=== PATIENT | female | born 1990 | race Caucasian/White ===

== ENCOUNTER 2017-07-26 05:38 | Emergency (ER) | payer BC ==
[~2017-07-26] VITALS: Ht 160 cm; Wt 68.9 kg
[~2017-07-26 05:38] MED LIST: CIPR-255 PO
[2017-07-26 05:43] VITALS: TEMP 36.7; Ht 160 cm; Wt 68.9 kg
[2017-07-26] MEDS ORDERED: SERT50TA PO (06:04)
[2017-07-26] MEDS ORDERED: AMOX875T PO (06:13)
[2017-07-26] MEDS ORDERED: AMOXICILLIN/CLAVULANATE TAB 875 MG TAB PO ONE (06:15)
--- NOTE | 2017-07-26 06:15 | EMERGENCY ROOM VISIT NOTE ---
History First contact with patient: 05:47 Chief Complaint: SINUS CONGESTION/PRESSURE Stated Complaint: SINUS PRESSURE,HEADACHE,EAR AHCES,NAUSEA,FEVER 3DY Nursing Triage Summary: c/o head congestion and sinus pressure since monday seen by her dr. lorenzo has been taking otc meds without relief. History of Present Illness The patient is a 26 year old female who presents to the Emergency Room with complaints of sinus congestion 3 days. The patient states that she has had fevers and facial pressure for the past 3 days. She also reports a sore throat and pressure in her ears. She states that she has been ill on and off since December. She has been seeing her primary care provider, Dr. Crain, who recently ordered labs and told her that her IgG level was low. She has also seen ENT due to some issues with throat swelling. She had a normal scope. She was treated with doxycycline for pneumonia last month, but has not been on any other antibiotics recently. She has been taking Xanax and Advil without relief of her symptoms. She rates her discomfort a 7/10. She denies any neck pain/ stiffness, nausea/vomiting, abdominal pain or cough. Review of Systems A complete 10 point review of systems was reviewed with the patient with pertinent positives and negatives as per history of present illness. All else were negative. Social History Smoking Status: Never Smoker Alcohol Use: occasionally Drug Use: none Marital Status: single Housing Status: lives with roommate Occupation Status: employed Current/Historical Medications Scheduled Amoxicillin & Pot Clavulanate (Augmentin 875-125 mg), 1 TAB PO BID Sertraline (Zoloft), 50 MG PO DAILY Physical Exam Vital Signs Date Time Temp Pulse Resp B/P (MAP) Pulse Ox O2 Delivery O2 Flow Rate FiO2 07/26/17 06:20 72 16 111/74 98 07/26/17 05:43 36.7 101 20 126/80 98 Room Air Physical Exam VITALS: Vitals are noted on the nurse's note and reviewed by myself. Vital signs stable. GENERAL: This is a 26-year-old female, in no acute distress, nondiaphoretic, well-developed well-nourished. SKIN: The skin was without rashes. EARS: External auditory canals clear, tympanic membranes pearly reyes without erythema or effusion bilaterally. EYES: Pupils equal round and reactive to light and accommodation. Conjunctivae without injection, sclerae without icterus. NOSE: Patent, turbinates are mildly inflamed bilaterally. There is mild maxillary sinus tenderness bilaterally. MOUTH: Mucous membranes moist. Tonsils are not enlarged. Pharynx slightly erythematous without exudate. NECK: Supple without nuchal rigidity. Left anterior cervical lymphadenopathy. HEART: Regular rate and rhythm without murmurs gallops or rubs. LUNGS: Clear to auscultation bilaterally without wheezes, rales or rhonchi. NEURO: Patient was alert and oriented to person place and time. Medical Decision & Procedures Medications Administered Medications (Trade) Dose Ordered Sig/Zoe Route Start Time Stop Time Status Last Admin Dose Admin Amoxicillin/ Clavulanate Potassium (Augmentin Tab) 875 mg ONE ONCE PO 07/26/17 06:15 07/26/17 06:16 DC 07/26/17 06:05 875 MG Medical Decision Differential diagnosis includes sinusitis, otitis media, pharyngitis, meningitis , encephalitis, viral illness, among others. The patient is a 26-year-old female who presents today complaining of sinus tenderness. The patient has been following closely with her primary care provider for recurrent illnesses over the past several months. She will be placed on Augmentin. I did suggest steroids, but she states she does not typically tolerate these well. She was encouraged to follow-up closely with her primary care provider. Conservative measures were discussed. She was encouraged to return here for any neck pain/stiffness or other concerning symptoms. Based on the patient's presentation and work up, I feel the patient is stable for outpatient treatment. The patient was educated to return to the emergency department for any worsening of their current condition or new/concerning symptoms. She will follow up with her PCP. Medication Reconcilliation Current Medication List: was personally reviewed by me Blood Pressure Screening Patient's blood pressure: Normal blood pressure Impression Primary Impression: Acute sinusitis Departure Information Dispostion Home / Self-Care Condition GOOD Prescriptions Amoxicillin & Pot Clavulanate (Augmentin 875-125 mg) 1 Tab Tab 1 TAB PO BID for 10 Days, #20 TAB Prov: Nohelia Lay PA-C 07/26/17 Referrals Ty Crain MD (PCP) Patient Instructions [facility] Additional Instructions You were prescribed Augmentin to be taken twice daily for 10 days. This is an antibiotic. All antibiotics have the potential to cause diarrhea. Stop this medication and contact a medical provider if you were to develop any significant adverse side effects including: wheezing, shortness of breath, passing out, vomiting, or a diffuse rash. Always take antibiotics as directed and COMPLETE the ENTIRE course regardless of the improvement of your symptoms. For pain/fever control, you can use the following [id number] medicines ( if >12 yo): - Regular strength (325mg/tab) Tylenol (acetaminophen) 2 tabs every 4-6 hours as needed. Do not exceed 12 tablets in a 24 hour period. Avoid taking more than 4 grams (4000 mg) of Tylenol per day. This includes any other sources of acetaminophen you may take on a regular basis. - Regular strength (200 mg/tab) Advil (ibuprofen) 1-2 tabs every 4-6 hours as needed. Do not exceed a dose of 3200 mg per day. Follow-up with your primary care provider this week. Return to the emergency with any neck pain/stiffness, severe headache or any other new/concerning symptoms. Problem Qualifiers Primary Impression: Acute sinusitis
[2017-07-26 06:20] VITALS: BP 111/74; PULSE 72; O2SAT 98
== END 2017-07-26 06:21 | disposition home or self-care (01) ==
LOC: C.EDB 05:39 → C.EDA 06:21
DX: J01.90 Acute sinusitis, unspecified (principal); Z87.01 Personal history of pneumonia (recurrent); Z79.899 Other long term (current) drug therapy

== ENCOUNTER 2022-03-03 21:39 | Inpatient (IN) ==
[2022-03-03] MEDS ORDERED: OXYTOCIN 30 UNITS/500 ML BAG IV PRN (21:50)
--- NOTE | 2022-03-03 21:54 | Labor Progress Brief Note ---
Date of Service March 03, 2022 Subjective Patient returns with contractions more painful and Q3min, no LOF, no VB, good FM. Assessment & Plan (1) Normal labor and delivery: Plan: Patient admitted as now in labor. Wants epidural; can provide as labs/bolus completed. Expt mgmt of labor for now. Physical Exam Genitourinary: /-2 FHT Cat 1 toco just being applied but clinically Q2-3 painful. Coding Level of Care Code None Diagnoses Normal labor and delivery O80
[2022-03-03] MEDS: LACTATED RINGER'S 1,000 ML IV PRN (21:56)
[2022-03-03] MEDS ORDERED: fentaNYL citrate 100 MCG/2 ML VIAL ONE (22:09)
[2022-03-03] MEDS ORDERED: ePHEDrine sulfate 50 MG/ML AMP ONE (22:09)
[2022-03-03] MEDS ORDERED: fentaNYL 2MCG/ML ROPIVACAINE 1.25MG/ML 100 ML BAG EPI ONE (22:09)
[2022-03-03] MEDS ORDERED: BUPIVACAINE 0.25% 30 ML VIAL ONE (22:09)
[2022-03-03] MEDS ORDERED: SODIUM CHLORIDE 0.9% INJ 10 ML VIAL ONE (22:09)
[2022-03-03 22:23] LABS: Hematocrit (blood only) 36.3 % (37-47); Hemoglobin 12.7 g/dL (12.0-16.0); Mean Corpuscular Hemoglobin 31.2 pg (25-34); Mean Corpuscular Volume 89.2 fL (80-100); Mean Platelet Volume 10.5 fL (7.4-10.4); Platelet Count 194 K/uL (130-400); RDW Coefficient of Variation 12.6 % (11.5-14.5); RDW Standard Deviation 40.2 fL (36.4-46.3); Red Blood Count 4.07 M/uL (4.2-5.4)
--- NOTE | 2022-03-03 22:30 | Anesthesiology Consultation ---
Date of Service March 03, 2022 Assessment & Plan (1) Encounter for pre-operative examination: Chart Review Chart Review: Patient NOT seen in Pre Admission Testing and Acceptable Risk for Labor Epidural Consults Requested none History Height/Weight Height: 5 ft 3 in Weight: 80.739 kg Allergies Allergy/AdvReac Type Severity Reaction Status Date / Time No Known Allergies Allergy Verified 02/28/22 16:21 Medications Home Medications Medication Instructions Recorded Confirmed Last Taken prenat.vits,lashawn,psz-ufux-urbsx 1 tab PO DAILY 04/27/21 03/03/22 03/03/22 Active Medications Generic Name Dose Route Start Last Admin Trade Name Freq PRN Reason Stop Dose Admin Lactated Ringer's 1,000 mls @ 125 mls/hr 03/03/22 21:50 03/03/22 21:56 Lr IV 03/05/22 21:49 999 mls/hr .Q8H PRN Administration L&D Protocol Protocol NPO Date Last Intake of Fluids: 03/03/22 Time Last Intake of Fluids: 22:28 Date Last Intake of Solids: 03/03/22 Time Last Intake of Solids: 22:28 Past Medical History Medical History Depression in high school. No treatment since History of chicken pox Hyperparathyroidism 5 years ago; no treatment or symptoms Past Family History Family History Mother Dyslipidemia Father Heart disease Thyroid disease Other Depression Hypertension Denies family history of Ovarian cancer Prostate cancer Breast cancer Colorectal cancer Past Surgical History Surgical History H/O foot surgery right foot surgery 2009 History of dental surgery wisdom teeth removed 2006 History of tonsillectomy age 4 Social History Smoking Status: Never smoker Hx Alcohol Use: No Hx Substance Use: No Physical Exam Vital Signs Last Vital Signs Temp 36.6 C 03/03/22 21:53 Pulse 70 03/03/22 22:24 Resp 18 03/03/22 21:53 BP 144/79 H 03/03/22 21:53 Pulse Ox 98 03/03/22 22:24 Testing Laboratory Results 03/03/22 22:12
[2022-03-03] MEDS ORDERED: NALOXONE HCL 0.4 MG/1 ML VIAL/CARP IV PRN (23:06)
[2022-03-03] MEDS ORDERED: ONDANSETRON INJ 2 MG/ML 2 ML VIAL IV PRN (23:06)
[2022-03-03] MEDS ORDERED: ePHEDrine sulfate 50 MG/ML AMP IV PRN (23:06)
[2022-03-03] MEDS ORDERED: NALOXONE HCL 1 MG in SODIUM CHLORIDE 0.9% 1000ML 1,000 ML IV PRN (23:06)
[2022-03-03] MEDS ORDERED: fentaNYL 2MCG/ML ROPIVACAINE 1.25MG/ML 100 ML BAG EPI PRN (23:06)
[2022-03-03] MEDS ORDERED: diphenhydrAMINE 50 MG/ML VIAL IV PRN (23:06)
[2022-03-03] MEDS ORDERED: NALBUPHINE HCL INJ 10 MG/ML AMP IV PRN (23:06)
[2022-03-04] MEDS: LACTATED RINGER'S 1,000 ML IV PRN (00:45)
[2022-03-04] MEDS ORDERED: EPINEPHrine ADULT AUTO-INJECT 0.3 MG SYR IM STA (07:27)
[2022-03-04] MEDS ORDERED: HYDROCORTISONE ACETATE 25 MG SUPP PR PRN (09:27)
[2022-03-04] MEDS ORDERED: BENZOCAINE 20% AER SPR 82.5 GM CAN EXT PRN (09:27)
[2022-03-04] MEDS ORDERED: ACETAMINOPHEN 325 MG TAB PO PRN (09:27)
[2022-03-04] MEDS ORDERED: DIPHTHERIA/TETANUS/PERTUSSIS 0.5 ML SYR/VIAL IM ONE (09:27)
[2022-03-04] MEDS ORDERED: bisacodyL 10 MG SUPP PR PRN (09:27)
[2022-03-04] MEDS ORDERED: OXYTOCIN 30 UNITS/500 ML BAG IV PRN (09:27)
[2022-03-04] MEDS ORDERED: miSOPROStoL 200 MCG TAB ONE (09:39)
[2022-03-04] MEDS: IBUPROFEN 600 MG TAB PO PRN ×4 (09:58→23:41)
--- NOTE | 2022-03-04 10:01 | Anesthesia Procedure Note ---
Date of Service March 04, 2022 Anesthesia Post Epidural Note Vital Signs Vital Signs: Temp Pulse Resp BP Pulse Ox 37.0 C 100 H 18 126/71 99 03/04/22 04:55 03/04/22 09:45 03/04/22 03:06 03/04/22 09:45 03/04/22 09:04 Notes Mental Status: alert / awake / arousable and participated in evaluation Patient Amnestic to Procedure: No Nausea / Vomiting: adequately controlled Pain: adequately controlled Airway Patency, RR, SpO2: stable & adequate BP & HR: stable & adequate Hydration State: stable & adequate Neuraxial Anesthesia: was administered and sensory block resolved Anesthetic Complications: no major complications apparent and Pt Satisfied with anesthetic care Epidural: Removed without complications and With tip intact
--- NOTE | 2022-03-04 12:14 | Delivery Summary ---
DATE OF SERVICE: 03/04/2022 PROCEDURE: Normal spontaneous vaginal delivery. ESTIMATED BLOOD LOSS: 300 mL. DRAINS: None. FLUIDS: Continuous lactated Ringer. URINE OUTPUT: None. COMPLICATIONS: None. FINDINGS: Viable male with weight and Apgars pending. DESCRIPTION OF PROCEDURE: The patient progressed to 10 cm dilated, 100% effaced, positive 2 station, pushed over intact perineum with epidural anesthesia and delivered a viable male , weight and Apgars as noted above. Head of the delivered in FIONA position, restituted to right transverse . No nuchal cord was noted. Body and shoulders soon followed. was delivered to maternal domen, was noted to be vigorous soon after delivery. A 1 minute delayed cord clamping was initiated, after which the cord was double clamped and cut. remained on maternal abdomen. Cord blood was obtained. Attention was then turned to delivery of the placenta, which was delivered intact, 3-v essel cord, gentle cord traction. On inspection of the perineum, vagina, cervix, there was noted to be a superficial left vaginal sidew all laceration, which was repaired with 3-0 Vicryl in continuous running locked stitch. Needle, spon ge, and instrument counts were correct at the completion of the case. Both mother and were s table in the immediate post-delivery period. Job ID: [id number]
[2022-03-04] MEDS: DOCUSATE SODIUM 100 MG CAP PO SCH (19:24)
[2022-03-05] MEDS: IBUPROFEN 600 MG TAB PO PRN ×5 (03:41→20:53)
[2022-03-05 06:49] LABS: Hematocrit (blood only) 32.9 % (37-47); Hemoglobin 11.4 g/dL (12.0-16.0)
--- NOTE | 2022-03-05 08:36 | Obstetrical Progress Note ---
Date of Service March 05, 2022 Assessment & Plan (1) Encounter for care and examination after delivery: Day 1 . Doing well. Routine care Subjective Ambulation: ambulating normally Voiding: no voiding problems Passing Gas:: Yes Diet Tolerance:: regular diet Lochia:: Moderate Feeding Type:: breast feeding Physical Exam Exam per nurse. Patient washing baby Constitutional WD/WN, vitals as above Respiratory normal respiratory effort; no respiratory distress and no labored breathing Gastrointestinal (Abdomen) Inspection/Auscultation: abdomen normal to inspection; abdomen not distended Percussion/Palpation: abdomen soft; abdomen nontender, no guarding and abdomen not rigid Genitourinary OB Exam Abdomen: + fundal height Fundus: + firm and + relation to umbilicus (Below); not tender or not boggy Results & Data ([facility]) Vital Signs (Past 12 Hours) Vital Signs Temp Pulse Resp BP Pulse Ox 03/05/22 03:35 36.5 C 77 16 103/71 99 03/04/22 23:40 36.8 C 77 16 120/77 98
[2022-03-05] MEDS: PRENATAL VITAMIN 1 TAB PO SCH (08:50)
[2022-03-05] MEDS: FERROUS SULFATE 325 MG TAB PO SCH (08:50)
[2022-03-05] MEDS: DOCUSATE SODIUM 100 MG CAP PO SCH ×2 (08:50→20:53)
[2022-03-05] MEDS ORDERED: bisacodyL 5 MG TABEC PO SCH (20:00)
[2022-03-06] MEDS: IBUPROFEN 600 MG TAB PO PRN ×3 (00:50→10:17)
--- NOTE | 2022-03-06 06:59 | Obstetrical Progress Note ---
Date of Service March 06, 2022 Assessment & Plan (1) Encounter for care and examination after delivery: stable, routine care. dc home. instructions reviewed. plan 6wk pp check. breast, rhpos, ri. Day #:: 2 Subjective Ambulation: ambulating normally Voiding: no voiding problems Diet Tolerance:: regular diet Lochia:: Small Feeding Type:: breast feeding denies pain issues. Constitutional: + as per Subjective / HPI Physical Exam Constitutional WD/WN, vitals as above Respiratory normal respiratory effort, lungs clear to auscultation Cardiovascular Rate/Rhythm: regular rate and regular rhythm Gastrointestinal (Abdomen) Inspection/Auscultation: abdomen normal to inspection Percussion/Palpation: abdomen soft fundus firm 1 cm below umbilicus, NT Musculoskeletal nt calves no edema Neurologic grossly normal Psychiatric A+Ox3, euthymic affect Results & Data ([facility]) Vital Signs (Past 12 Hours) Vital Signs Temp Pulse Resp BP Pulse Ox 03/05/22 23:45 98.1 F 74 16 137/82 98 03/05/22 20:40 98.1 F 76 16 124/76 97
[2022-03-06] MEDS: FERROUS SULFATE 325 MG TAB PO SCH (09:06)
[2022-03-06] MEDS: DOCUSATE SODIUM 100 MG CAP PO SCH (09:06)
[2022-03-06] MEDS: PRENATAL VITAMIN 1 TAB PO SCH (09:06)
== END 2022-03-06 15:10 | disposition home or self-care (01) | DRG 807 ==
LOC: OPB 21:39 → 4S1 21:41 → 4E2 03-04 13:18